=== PATIENT | female | born 1985 | race African-American/Black ===

== ENCOUNTER 2019-01-16 16:13 | Observation (INO) | payer MEDICAID ==
[2019-01-16] MEDS ORDERED: IV RINGERS,LACTATED 1000ML 1,000 ML IV SCH (16:16)
[2019-01-16 16:46] LABS: BILIRUBIN,URINE NEGATIVE (NEG); CLARITY,URINE CLEAR; COLOR,URINE YELLOW; NITRITE,URINE NEGATIVE (NEG); PROTEIN,URINE NEGATIVE (NEG-TRACE); UROBILINOGEN,URINE 0.2 mg/dL (0.2 mg/dL)
[2019-01-16 16:57] LABS: RBC,URINE OCC /HPF (0-2)
[2019-01-16 16:58] LABS: BACTERIA,URINE FEW /HPF (0-FEW); SQUAMOUS EPITHELIAL CELL,UR OCC /LPF
--- NOTE | 2019-01-17 15:24 | RAD ---
EXAM: OBSTETRIC ULTRASOUND WITH BIOPHYSICAL PROFILE. HISTORY: Intrauterine growth restriction. COMPARISON: None. FINDINGS: Sonographic evaluation of the uterus, fetus and maternal pelvis was performed with biophysical profile. There is a single fetus in vertex presentation. heart rate is 121 bpm. Estimated gestational age based on measurements is 28 weeks one day. Estimated weight is 1114 g.. Abdominal circumference lags other measurements at 26 weeks 3 days, as compared with 28 weeks 2 days for head circumference through 29 weeks 2 days for femur length. The placenta is posterior. There is no evidence of placenta previa. Amniotic fluid volume appears normal with amniotic fluid index 10.9 cm. Biophysical profile score: 8/8. breathin. tone: 2. movement: 2. Amniotic fluid volume: 2. The maternal adnexa are obscured by positioning currently. IMPRESSION: 1. Biophysical profile score: 8/8. 2. Single fetus in vertex presentation. heart rate 121 bpm. Estimated gestational age based on measurements 28 weeks 1 day. Abdominal circumference lags head circumference. Electronically signed by: Maru Plunkett MD (01/17/2019 3:21 PM) [facility]
== END 2019-01-16 18:00 | disposition home or self-care (01) ==
LOC: 3 SO LND 16:13
PROVIDERS: ADMIT Specialist; ATTEND Specialist
DX: O36.5930 Maternal care for other known or suspected poor fetal growth, third trimester, not applicable or unspecified (principal); Z3A.29 29 weeks gestation of pregnancy
CPT/HCPCS: 76815; 76819; 81001; 87086; G0378; G0379; 59025

== ENCOUNTER → 2019-02-01 | Outpatient (CLI) | payer MEDICAID ==
[2019-02-01 09:53] LABS: BASO % 0 % (0-3); EOS # 0.1 x10^3/uL (0.0-0.7); EOS % 1 % (0-3); HEMATOCRIT 33.8 % (36.0-47.0); HEMOGLOBIN 11.4 g/dL (12.0-15.5); LYMPH # 2.4 x10^3/uL (1.0-4.8); LYMPH % 21 % (24-48); MEAN CORPUSCULAR HEMOGLOBIN 31 pg (25-35); MEAN CORPUSCULAR HGB CONC 34 g/dL (31-37); MEAN CORPUSCULAR VOLUME 91 fL (79-100); MONO # 0.9 x10^3/uL (0.0-1.1); MONO % 8 % (0-9); NEUT # 7.8 x10^3/uL (1.8-7.7); NEUT % 70 % (31-73); PLATELET COUNT 181 x10^3/uL (140-400); RED CELL DISTRIBUTION WIDTH 13.5 % (11.5-14.5); WHITE BLOOD COUNT 11.2 x10^3/uL (4.0-11.0)
== END | disposition home or self-care (01) ==
LOC: LAB 09:19
PROVIDERS: ATTEND Obstetrics & Gynecology
DX: O09.90 Supervision of high risk pregnancy, unspecified, unspecified trimester (principal); O99.280 Endocrine, nutritional and metabolic diseases complicating pregnancy, unspecified trimester
CPT/HCPCS: 36415; 82947; 82950; 84443; 85025

== ENCOUNTER 2019-02-07 16:15 | Observation (INO) | payer MEDICAID ==
[2019-02-07] MEDS ORDERED: BETAMET ACET&NA PHOS 30 MG/5 ML VIAL. IM ONE (17:00)
--- NOTE | 2019-02-08 10:47 | RAD ---
Examination: BIOPHY PRO W/O NON STR ADD', OB LIMITED History: Severe intrauterine growth retardation Comparison/Correlation: 01/09/2019 biophysical profile exam Limited OB ultrasound exam Findings: Biophysical profile score of breathing, motion, tone, amniotic fluid volume are each 2/2. Total biophysical profile score of 8/8 is noted. heart rate is 123 beats per minute. Fundal location of placenta is present. Cephalic lie noted. Average ultrasound age of 31 weeks 5 days is present with EDC of 04/06/2019 by ultrasound. Estimated weight is 1655 g +/- 2 145 g. This corresponds to the 24th percentile. Cephalic index is 91.8 and this is above normal. Head circumference to abdominal circumference ratio is 1.15. Femur length to biparietal diameter ratio is 76.2. Femoral length to abdominal circumference circumference ratio is 21.2. Biparietal diameter of 8.14 cm corresponding to 32 weeks 5 days. This is at the 46th percentile. Head circumference is 29.18 cm corresponding to 32 weeks 1 day and this is at the 9th percentile. Abdominal circumference is 25.33 cm and this corresponds to 29 weeks 4 days and this is at the 1 percentile. Femur length is 6.2 cm and this corresponds to the 26th percentile. Impression: Average ultrasound age of 31 weeks 5 days is present and this is 7 days less than expected by clinical age. Abdominal circumference is relatively small and at the 1st percentile. Upon comparison with the previous exam, greater than expected interval growth is noted. Normal biophysical profile score. Electronically signed by: Juan Jeffery MD (02/08/2019 10:44 AM) [facility]
== END 2019-02-07 19:17 | disposition home or self-care (01) ==
LOC: 3 SO LND 16:15
PROVIDERS: ADMIT Obstetrics & Gynecology; ATTEND Obstetrics & Gynecology
DX: O36.5930 Maternal care for other known or suspected poor fetal growth, third trimester, not applicable or unspecified (principal); Z3A.32 32 weeks gestation of pregnancy
CPT/HCPCS: 36415; 76815; 76819; 86850; 86900; 86901; 96372; G0378; G0379; J0702; J2791; 59025

== ENCOUNTER 2019-02-08 16:18 | Observation (INO) | payer MEDICAID ==
[2019-02-08] MEDS ORDERED: BETAMET ACET&NA PHOS 30 MG/5 ML VIAL. IM ONE (16:45)
== END 2019-02-08 18:05 | disposition home or self-care (01) ==
LOC: 3 SO LND 16:18
PROVIDERS: ADMIT Obstetrics & Gynecology; ATTEND Obstetrics & Gynecology
DX: Z34.93 Encounter for supervision of normal pregnancy, unspecified, third trimester (principal); Z3A.32 32 weeks gestation of pregnancy
CPT/HCPCS: G0378; G0379; J0702; 96372